=== PATIENT | male | born 1975 | race Caucasian/White ===

== ENCOUNTER 2016-04-26 17:57 | Emergency (ER) | payer BC ==
[2016-04-26 18:06] VITALS: BP 132/82; PULSE 125; RESP 18; TEMP 98.7
[2016-04-26] MEDS ORDERED: DIPH,PERTUS(ACELL)TETVAC-LF 0.5 ML VIAL IM ONE (18:45)
--- NOTE | 2016-04-26 18:48 | ED ---
Wound/Laceration HPI - General Chief Complaint: Wound/Laceration Stated Complaint: rt knee injury from chainsaw Time Seen by Provider: 04/26/16 18:30 Source: patient, RN notes reviewed Mode of arrival: ambulatory Limitations: no limitations - History of Present Illness Initial Comments: 40-year-old male presents emergency Department chief complaint of laceration to his right knee. Patient states that he caught it with a chainsaw. Patient states his tetanus was updated 7 years ago. Denies any decreased range of motion. Denies any active bleeding at this time. - Related Data Home Medications Medication Instructions Recorded Confirmed Lipitor (Unknown Dose) 1 tab PO DAILY 04/26/16 04/26/16 Losartan [Cozaar] 50 mg PO DAILY 04/26/16 04/26/16 Allergies Allergy/AdvReac Type Severity Reaction Status Date / Time No Known Allergies Allergy Unverified 04/26/16 18:16 Review of Systems ROS Statement: Those systems with pertinent positive or pertinent negative responses have been documented in the HPI. ROS Other: All systems not noted in ROS Statement are negative. Past Medical History Past Medical History: Hyperlipidemia, Hypertension History of Any Multi-Drug Resistant Organisms: None Reported Additional Past Surgical History / Comment(s): septum Past Psychological History: No Psychological Hx Reported Smoking Status: Never smoker Past Alcohol Use History: None Reported General Exam Limitations: no limitations General appearance: alert, in no apparent distress Respiratory exam: Present: normal lung sounds bilaterally. Absent: respiratory distress, wheezes, rales, rhonchi, stridor Cardiovascular Exam: Present: regular rate, normal rhythm, normal heart sounds. Absent: systolic murmur, diastolic murmur, rubs, gallop, clicks Extremities exam: Present: other (Right knee 5 cm superficial laceration with 2 cm area of deep laceration) Neurological exam: Present: alert, oriented X3, CN II-XII intact Skin exam: Present: warm, dry Course Vital Signs 04/26/16 18:03 Temperature 98.7 F Pulse Rate 125 H Respiratory 18 Rate Blood Pressure 132/82 O2 Sat by Pulse 97 Oximetry Procedures - Laceration Laceration #1 Consent Obtained: verbal consent Indication: laceration Site: upper extremity (Right knee) Size (cm): 2 Depth: simple, single layer Anesthetic Used: lidocaine 1%, without epi Anesthesia Technique: local infiltration Amount (mls): 3 Pre-repair: wound explored, irrigated extensively, deep structures intact Type of Sutures: nylon Size of Sutures: 4-0 Number of Sutures: 3 Technique: simple, interrupted Patient Tolerated Procedure: well, no complications Disposition Clinical Impression: Laceration of right knee Disposition: HOME SELF-CARE Condition: Stable Instructions: Laceration (ED), Care For Your Stitches (ED) Additional Instructions: Please return to the Emergency Department if symptoms worsen or any other concerns. Wash the wound twice daily with soap and water have his sutures removed in 10 days. Referrals: Nonstaff,Physician [Primary Care Provider] - 1-2 days Time of Disposition: 18:48
== END 2016-04-26 19:10 | disposition home or self-care (01) ==
LOC: EC 17:57
DX: S81.011A Laceration without foreign body, right knee, initial encounter (principal); E78.5 Hyperlipidemia, unspecified; Z23 Encounter for immunization; I10 Essential (primary) hypertension; Z79.899 Other long term (current) drug therapy; W29.8XXA Contact with other powered hand tools and household machinery, initial encounter
CPT/HCPCS: 12001; 90471; 90715; 99282